=== PATIENT | female | born 1995 | race Caucasian/White ===

== ENCOUNTER 2020-12-19 04:17 | Emergency (ER) | payer BC, OTHER ==
[~2020-12-19] VITALS: Ht 168 cm; Wt 88.4 kg
[2020-12-19] MEDS ORDERED: ONDANSETRON 4 MG (ZOFRAN) ORAL DISSOLVE TAB PO STA (04:38)
[2020-12-19] MEDS ORDERED: MECL-149 PO (04:45)
[2020-12-19] MEDS ORDERED: MECLIZINE 25 MG (ANTIVERT) TAB PO ONE (04:45)
[2020-12-19] MEDS ORDERED: ONDA4TAB11 PO (04:45)
--- NOTE | 2020-12-19 04:45 | ED General ---
General Chief Complaint: Dizziness/Syncope Stated Complaint: DIZZY,VOMITING,FEVER Source of Information: Patient Exam Limitations: No Limitations (GUSTAVO CASTILLO MD) History of Present Illness Date Seen by Provider: Dec 19, 2020 Time Seen by Provider: 04:30 Initial Comments 25-year-old female presents to the emergency room today with an acute onset of dizziness while sleeping. Patient states she woke up this morning feeling dizzy and having nausea and vomiting. Patient states when she is sitting or laying down her dizziness is worse, especially with her eyes closed. She denies any recent illnesses such as fevers, chills cough or congestion. No recent nausea vomiting or diarrhea until this morning, when she had the nausea and vomiting with the dizziness. No problems with urination. States that she cannot be . Last menstrual cycle was 2 weeks ago. Patient states she took some Dramamine and Pepto-Bismol prior to coming to the emergency room and thinks that it might of improved her symptoms slightly. She denies headache. No sick contacts. Patient had Covid back in April 2020. She is not Covid vaccinated. She is visiting [place] from [place]. All other review of systems reviewed and negative except as stated. Timing/Duration: 1 Hour Severity: Moderate Modifying Factors: worse with Movement Associated Systoms: Nausea/Vomiting (GUSTAVO CASTILLO MD) Allergies and Home Medications Allergies Coded Allergies: Penicillins (Verified Allergy, Unknown, 12/19/20) Home Medications Meclizine HCl 25 Mg Tablet, 25 MG PO Q6H PRN for dizziness Prescribed by: GUSTAVO CASTILLO on 12/19/20 0445 Ondansetron 4 Mg Tab.rapdis, 4 MG PO Q8H PRN for nausea Prescribed by: GUSTAVO CASTILLO on 12/19/20 0445 Patient Home Medication List Home Medication List Reviewed: Yes (GUSTAVO CASTILLO MD) Review of Systems Review of Systems Constitutional: see HPI, dizziness EENTM: no symptoms reported Respiratory: no symptoms reported Cardiovascular: no symptoms reported Gastrointestinal: nausea, vomiting Genitourinary: no symptoms reported : No LMP: Dec 05, 2020 Musculoskeletal: no symptoms reported Skin: no symptoms reported Psychiatric/Neurological: Denies Headache (GUSTAVO CASTILLO MD) All Other Systems Reviewed Negative Unless Noted: Yes (GUSTAVO CASTILLO MD) Physical Exam Vital Signs Vital Signs - First Documented 12/19/20 04:25 Temp 36.8 Pulse 79 Resp 18 B/P (MAP) 128/82 (97) Pulse Ox 98 O2 Delivery Room Air (BONIFACIO HAN MD) Vital Signs Capillary Refill : (GUSTAVO CASTILLO MD) Height, Weight, BMI Height: '" Weight: lbs. oz. kg; BMI Method: General Appearance: No Apparent Distress, WD/WN Eyes: Bilateral Eye Normal Inspection, Bilateral Eye PERRL, Bilateral Eye EOMI HEENT: PERRL/EOMI, TMs Normal, Normal ENT Inspection, Pharynx Normal Neck: Full Range of Motion, Normal Inspection, Non Tender, Supple Respiratory: Lungs Clear, Normal Breath Sounds, No Accessory Muscle Use, No Respiratory Distress Cardiovascular: Regular Rate, Rhythm Gastrointestinal: Non Tender, Soft Extremity: Normal Inspection Neurologic/Psychiatric: Alert, Oriented x3, No Motor/Sensory Deficits, Normal Mood/Affect, decorating machine tender II-XII Norm as Tested, Other (slight nystagmus to the left; patient unable to really tolerate gaze to the right without becoming profoundly dizzy) Skin: Normal Color, Warm/Dry (GUSTAVO CASTILLO MD) Progress/Results/Core Measures Suspected Sepsis SIRS Temperature: Pulse: Respiratory Rate: Blood Pressure / Mean: (GUSTAVO CASTILLO MD) Results/Orders Medications Given in ED Current Medications Medications Dose Ordered Sig/Roshan Route Start Time Stop Time Status Last Admin Dose Admin Meclizine HCl 25 mg ONCE ONCE PO 12/19/20 04:45 12/19/20 04:46 DC 12/19/20 04:43 25 MG (BONIFACIO HAN MD) Vital Signs/I&O 12/19/20 12/19/20 04:25 06:43 Temp 36.8 36.8 Pulse 79 63 Resp 18 18 B/P (MAP) 128/82 (97) 115/75 (97) Pulse Ox 98 97 O2 Delivery Room Air Room Air (BONIFACIO HAN MD) Vital Signs/I&O Capillary Refill : (GUSTAVO CASTILLO MD) Progress Note : Time: 05:50 Progress Note Patient reevaluated after Zofran and meclizine, states that her nausea is much improved and she states she felt better for about 20 minutes but then got up to go to the bathroom and had return of symptoms. We do not have Valium in the ED currently so we will give her a half a milligram of Ativan to see if we can calm down her sensations of dizziness. (GUSTAVO CASTILLO MD) Progress Note : Progress Note I assumed care of this patient after shift change and received verbal report from Dr. Castillo. Patient was having a little bit of rebound vertigo after Ativan. Ariadna maneuver was performed starting on the right. Patient denied dizziness after Ariadna maneuver. Discharge instructions were provided as written by Dr. Castillo. She also prescribed meclizine and Zofran prescriptions. An Ariadna maneuver handout was provided. (BONIFACIO HAN MD) Departure Impression Primary Impression: Vertigo Disposition: 01 HOME, SELF-CARE Condition: Stable Departure-Patient Inst. Decision time for Depature: 04:48 (GUSTAVO CASTILLO MD) Referrals: NO,LOCAL PHYSICIAN (PCP/Family) Primary Care Physician Patient Instructions: Vertigo (a Type of Dizziness) (DC) Add. Discharge Instructions: Drink plenty of fluids to stay well hydrated. Zofran as needed for nausea, every 6-8 hours. Meclizine for dizziness; take one tablet every 6 hours as needed. If you have worsening dizziness, especially with headache, fever or other emergent concerning symptoms please come back to the ER for re-evaluation. You may follow the instructions provided for further attempts at Ariadna maneuver. Sometimes it requires multiple attempts before effective. You may also watch instructional videos on YouTube for assistance. Scripts Ondansetron (Ondansetron Odt) 4 Mg Tab.rapdis 4 MG PO Q8H PRN for nausea, #15 TAB Prov: GUSTAVO CASTILLO MD 12/19/20 Meclizine HCl (Meclizine HCl) 25 Mg Tablet 25 MG PO Q6H PRN for dizziness, #15 TAB Prov: GUSTAVO CASTILLO MD 12/19/20 GUSTAVO CASTILLO MD Dec 19, 2020 04:45 BONIFACIO HAN MD Dec 19, 2020 06:38
[2020-12-19] MEDS ORDERED: DIAZEPAM 2 MG (VALIUM) TAB PO STA (05:45)
[2020-12-19] MEDS ORDERED: LORazepam 0.5 MG (ATIVAN) TABLET PO STA (05:53)
[2020-12-19 06:43] VITALS: BP 115/75
== END 2020-12-19 06:43 | disposition home or self-care (01) ==
LOC: ER 04:23
DX: R42 Dizziness and giddiness (principal); Z86.16 Personal history of COVID-19
CPT/HCPCS: 99283